=== PATIENT | male | born 1995 | race Two or more races ===

== ENCOUNTER 2018-07-17 23:27 | Emergency (ER) | payer OTHER ==
[~2018-07-17] VITALS: Ht 177.8 cm; Wt 74.8 kg
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
[2018-07-17 23:57] LABS: BASOPHILS % (AUTO) 0.4 % (0.0-2.0); EOSINOPHILS % (AUTO) 1.6 % (0.0-6.0); HEMATOCRIT 45 % (39-51); HEMOGLOBIN 15.5 g/dL (13.5-17.5); LYMPHOCYTES # (AUTO) 1.9 /CMM (0.8-4.8); LYMPHOCYTES % (AUTO) 23.9 % (20.0-44.0); MEAN CORPUSCULAR HGB CONC 34 g/dl (31.0-36.0); MEAN CORPUSCULAR VOLUME 97 fL (80-96); MONOCYTES # (AUTO) 0.5 /CMM (0.1-1.30); MONOCYTES % (AUTO) 6.8 % (2.0-12.0); NEUTROPHILS # (AUTO) 5.4 /CMM (1.8-8.9); NEUTROPHILS % (AUTO) 67.3 % (43.0-81.0); PLATELET COUNT (AUTO) 202 /CMM (150-450); RED BLOOD CELL COUNT(AUTO) 4.68 MIL/uL (4.5-6.0)
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
[2018-07-18 00:06] LABS: CALCIUM, SERUM 9.1 mg/dL (8.5-10.1); CARBON DIOXIDE 27 mmol/L (21-32); CHLORIDE 105 mmol/L (98-107); CREATININE 0.9 mg/dL (0.6-1.3); GLUCOSE 101 mg/dL (74-106); POTASSIUM 3.8 mmol/L (3.5-5.1); SODIUM SERUM 143 mmol/L (136-145); UREA NITROGEN, BLOOD 10 mg/dL (7-18)
[2018-07-18 00:12] LABS: ALANINE AMINOTRANSFERASE 25 U/L (12-78); ALCOHOL, BLOOD < 3 mg/dL (0-0); ALKALINE PHOSPHATASE 69 U/L (46-116); ASPARTATE AMINOTRANSFERASE 15 U/L (15-37); BILIRUBIN,DIRECT 0.1 mg/dL (0.0-0.2); BILIRUBIN,TOTAL 0.2 mg/dL (0.2-1.0); TOTAL PROTEIN, SERUM 7.3 g/dL (6.4-8.2)
[2018-07-18 00:13] LABS: ACETAMINOPHEN 0 ug/ml (10-30); SALICYLATE 1.2 mg/dL (2.8-20.0)
--- NOTE | 2018-07-18 00:15 | NUR ---
[employer] NO LONGER BEDSIDE WITH PT
--- NOTE | 2018-07-18 00:48 | NUR ---
PT RESTING IN BED WITH NO S/S OF ACUTE DISTRESS NOTED. WILL CONTINUE TO MONITOR PT.
--- NOTE | 2018-07-18 01:43 | NUR ---
RECIEVED CALL FROM [facility] FOR FURTHER DETAILS ON PT.
--- NOTE | 2018-07-18 01:45 | NUR ---
[facility] [phone]
--- NOTE | 2018-07-18 02:20 | NUR ---
[employer]CHIT[employer] MATTHEW BEDSIDE WITH PT FOR EVAL.
--- NOTE | 2018-07-18 02:54 | NUR ---
MONICA FROM [facility] CALLED REGARDING PLACEMENT
--- NOTE | 2018-07-18 02:58 | NUR ---
FAX NUMBER FOR MONICA AT [facility] [phone]
--- NOTE | 2018-07-18 03:11 | NUR ---
Patient is resting comfortably in bed with eyes closed. Easily aroused. VSS
--- NOTE | 2018-07-18 04:15 | NUR ---
Call from [facility]. Pt accepted to [facility] [address]ner. Please give report at 0600 . ETA for transport [phone]
--- NOTE | 2018-07-18 05:46 | NUR ---
Patient is resting comfortably in bed with eyes open. No s/s of acute distress noted.
--- NOTE | 2018-07-18 06:24 | NUR ---
REPORT GIVEN TO [facility] UNDERWRITER SOLICITATION DIRECTORMAGDIEL CANELA FOR [facility].
[2018-07-18 07:50] VITALS: BP 132/78
== END 2018-07-18 09:06 ==
LOC: ER 23:29
DX: T39.312A Poisoning by propionic acid derivatives, intentional self-harm, initial encounter (principal); R45.851 Suicidal ideations; F31.9 Bipolar disorder, unspecified; Y92.89 Other specified places as the place of occurrence of the external cause
CPT/HCPCS: 36415; 80048-TC; 80076-TC; 80305; 85025-TC; G0480